=== PATIENT | male | born 1960 | race Caucasian/White ===

== ENCOUNTER 2016-11-30 05:09 | Day surgery (SDC) | payer BC ==
[2016-11-29 10:37] LABS: BASOPHILS 0.6 % (0.0-2.0); EOSINOPHILS 1.9 % (0-7); HEMATOCRIT 47.3 % (42.0-54.0); HEMOGLOBIN 16.4 g/dL (13.5-17.5); IMMATURE GRANULOCYTES 0.1 % (0-5); LYMPHOCYTES 28.1 % (15-50); MCH 34.7 pg (26.0-34.0); MCHC 34.7 g/dL (31.0-37.0); MEAN PLATELET VOLUME 10.7 fL (7.4-10.4); MONOCYTES 10.2 % (2-11); NEUTROPHILS 59.1 % (40-80); PLATELET COUNT 200 10x3/uL (130-400); RBC 4.73 10x6/uL (4.20-6.10); RDW 12.1 % (11.5-14.5); WBC 8.6 10x3/uL (4.8-10.8)
[2016-11-29 10:45] LABS: CALC OSMOLALITY 275 mosm/kg (275-300); CALCIUM 9.7 mg/dL (8.5-10.1); CARBON DIOXIDE 31.3 mmol/L (21.0-32.0); CHLORIDE - SERUM 100 mmol/L (98-107); CREATININE - SERUM 0.8 mg/dL (0.6-1.3); GLUCOSE 155 mg/dL (74-106); POTASSIUM - SERUM 4.3 mmol/L (3.5-5.1); SODIUM 137 mmol/L (136-145); UREA NITROGEN 10 mg/dL (7-18); eGFR NON AFRICAN AMERICAN > 90 mL/min (90-120)
[~2016-11-30] VITALS: Ht 172.7 cm; Wt 81.6 kg
[~2016-11-30 05:09] MED LIST: HCTZ25 MG PO; LOTREL 10/20 CA1 CAP PO; NEURONTIN 300300 MG PO; OMEPRAZOLE20 M1 PO
[2016-11-30 06:11] VITALS: BP 117/66; Ht 172.7 cm; Wt 81.6 kg
[2016-11-30] MEDS ORDERED: HYDROCODONE-APA1 TAB PO (08:59)
--- NOTE | 2016-12-15 13:21 | OP ---
PATIENT NAME: FIORDALIZA TALLEY MEDICAL RECORD: [id number] :62 LOCATION:[facility] ADMISSION DATE: SURGEON: CHATO ZAMORA MD DATE OF OPERATION: 11/30/2016 PREOPERATIVE DIAGNOSES: 1. Umbilical hernia. 2. Chronic right lower quadrant pain secondary to adhesions. 3. Hypertension. 4. Gastroesophageal reflux disease. 5. Tobacco dependence syndrome. POSTOPERATIVE DIAGNOSES: 1. Umbilical hernia. 2. Chronic right lower quadrant pain secondary to adhesions. 3. Hypertension. 4. Gastroesophageal reflux disease. 5. Tobacco dependence syndrome. PROCEDURES: 1. Umbilical hernia repair with 4.6 cm Proceed mesh. 2. Laparoscopic lysis of adhesions times 15 minutes. SURGEON: Chato Zamora MD. REPORT OF PROCEDURE: The patient's abdomen was prepped and draped in sterile fashion. A semicircular incision was made on the inferior aspect of the umbilicus. Electrocautery was used to dissect through the subcutaneous tissues. We then bluntly came around the umbilical stalk and transected the hernia sac just underneath the umbilical stalk. The hernia defect was penetrated, 0 Vicryls were placed on each side of it and a 12-mm Afia was inserted. We insufflated the abdomen and performed an inspection of the patient's right lower quadrant where has been having chronic pain from previous open appendectomy. There was some scar tissue visible of the omentum and surrounding fatty tissue to the anterior abdominal wall. A 5-mm trocar was placed in the left lower quadrant and this tissue was freed up from the anterior abdominal wall. I did not see any evidence of any bowel actually tethered to or adherent to the anterior abdominal wall or scar. Dissection took approximately 15 minutes. At the conclusion of this, we removed the insufflation and the trocars. A 4.6-cm Proceed mesh was inserted and sutured down on all 4 sides around the umbilicus. The fascia was then closed transversely using running 0 Vicryl. The umbilicus was then tacked down with interrupted 3-0 Vicryl. The subcutaneous tissues were reapproximated with interrupted 3-0 Vicryls and then infused with 10 mL of 0.25% Marcaine with epinephrine. The skin incisions were all closed with subcutaneous 5-0 Monocryl and dressed appropriately. COMPLICATIONS: None. CONDITION: Stable. ANESTHESIA: General endotracheal and local. BLOOD LOSS: Minimal. TRANSINT:[id number] Voice Confirmation ID: [id number] DOCUMENT ID: [id number] OPERATIVE REPORT [id number] FIORDALIZA TALLEY CHRISTIAN MD at 1321 CC: LILIYA ODEN MD [id number] DICTATION DATE: 11/30/16 0904 BOTTOM MAN: 11/30/16 1457 [facility] 11/30/16 [place] [id number]
== END 2016-11-30 10:55 | disposition home or self-care (01) ==
LOC: D.OPS 05:09 → D.PAN 07:30 → D.OPS 07:30
PROVIDERS: Anesthesiology
DX: K42.9 Umbilical hernia without obstruction or gangrene (principal); F17.200 Nicotine dependence, unspecified, uncomplicated; I10 Essential (primary) hypertension; K21.9 Gastro-esophageal reflux disease without esophagitis; R10.31 Right lower quadrant pain